=== PATIENT | female | born 2000 | race Caucasian/White ===

== ENCOUNTER 2019-11-07 22:03 | Emergency (ER) | payer BC ==
--- NOTE | 2019-11-07 23:44 | ED ---
Skin Complaint - HPI Summary HPI Summary: Patient complains of rash localized to allergy shot injection site received 2 days ago. Patient receives the same shots regularly but has never had reaction before. Rash is pruritic, nonpainful. Denies any involvement of throat, SOB, fever, cough, sore throat, CP, SOB, N/3/D, abdominal pain, change in urine, change in BM. Medical history is asthma. - History of Current Complaint Chief Complaint: EDRashSkinAbscess Time Seen by Provider: 11/07/19 23:20 Stated Complaint: RASH ON RT ARM PER PT Hx Obtained From: Patient Onset/Duration: Started Days Ago Skin Exposure Onset/Duration: Days Ago Timing: Constant Current Severity: None Pain Intensity: 0 Pain Scale Used: 0-10 Numeric Skin Location: Discrete, Arm Aggravating Symptom(s): Nothing Alleviating Symptom(s): Nothing Associated Signs & Symptoms: Negative - Allergy/Home Medications Allergies/Adverse Reactions: Allergies Allergy/AdvReac Type Severity Reaction Status Date / Time No Known Allergies Allergy Verified 11/07/19 22:05 Home Medications: Home Medications Cephalexin CAP* [Keflex CAP*] 500 mg PO QID 7 Days #28 cap 11/07/19 [Rx] PMH/Surg Hx/FS Hx/Imm Hx Endocrine/Hematology History: Denies: Hx Anticoagulant Therapy Cardiovascular History: Denies: Hx Cardiac Arrest History: Denies: Hx Dialysis Sensory History: Denies: Hx Eye Prosthesis Opthamlomology History: Denies: Hx Legally Blind EENT History: Denies: Hx Deafness Neurological History: Denies: Hx CVA Infectious Disease History: No Infectious Disease History: Denies: Traveled Outside the [place] in Last 30 Days - Family History Known Family History: Positive: Non-Contributory - Social History Alcohol Use: Occasionally Substance Use Type: Reports: None Smoking Status (MU): Never Smoked Tobacco Review of Systems Constitutional: Negative Eyes: Negative ENT: Negative Cardiovascular: Negative Respiratory: Negative Gastrointestinal: Negative Genitourinary: Negative Musculoskeletal: Negative Positive: Rash Neurological/Mental Status: Negative Psychological: Normal All Other Systems Reviewed And Are Negative: Yes Physical Exam - Summary Physical Exam Summary: Localized 5 Cm x 5cm Area of Erythema Surrounding the Injection Site. No Extra Warmth, Ecchymosis, Swelling Noted. Triage Information Reviewed: Yes Vital Signs On Initial Exam: Initial Vitals Temp Pulse Resp BP Pulse Ox 98.3 F 105 18 143/80 98 11/07/19 22:06 11/07/19 22:06 11/07/19 22:06 11/07/19 22:06 11/07/19 22:06 Vital Signs Reviewed: Yes Appearance: Positive: Well-Appearing Skin: Positive: Warm Head/Face: Positive: Normal Head/Face Inspection Eyes: Positive: Normal Neck: Positive: Supple Respiratory/Lung Sounds: Positive: Clear to Auscultation Cardiovascular: Positive: Normal Abdomen Description: Positive: Nontender Musculoskeletal: Positive: Normal Neurological: Positive: Normal Psychiatric: Positive: Normal AVPU Assessment: Alert - [place] Coma Scale Best Eye Response: 4 - Spontaneous Best Motor Response: 6 - Obeys Commands Best Verbal Response: 5 - Oriented Coma Scale Total: 15 Procedures - Sedation Patient Received Moderate/Deep Sedation with Procedure: No Diagnostics - Vital Signs Vital Signs Temp Pulse Resp BP Pulse Ox 11/07/19 22:06 98.3 F 105 18 143/80 98 - Laboratory Lab Statement: Any lab studies that have been ordered have been reviewed, and results considered in the medical decision making process. Course/Dx - Course Course Of Treatment: Patient complains of rash localized to allergy shot injection site received 2 days ago. Patient receives the same shots regularly but has never had reaction before. Rash is pruritic, nonpainful. Denies any involvement of throat, SOB, fever, cough, sore throat, CP, SOB, N/3/D, abdominal pain, change in urine, change in BM. Medical history is asthma. Vital signs within normal limits. Patient advised to try Zyrtec for couple days. Prescription for Keflex sent to pharmacy if Zyrtec does not improve symptoms. - Diagnoses Provider Diagnoses: Allergic reaction Discharge ED - Sign-Out/Discharge Documenting (check all that apply): Patient Departure - Discharge Plan Condition: Stable Disposition: HOME Prescriptions: Cephalexin CAP* [Keflex CAP*] 500 mg PO QID 7 Days #28 cap Patient Education Materials: General Allergic Reaction (ED) Referrals: No Primary Care Phys,NOPCP [Primary Care Provider] - Additional Instructions: Take Zyrtec daily for the next couple days. If symptoms do not improve start antibiotics. Follow-up with primary care. - Billing Disposition and Condition Condition: STABLE Disposition: Home
[2019-11-07 23:56] VITALS: BP 120/74
== END 2019-11-07 23:54 | disposition home or self-care (01) ==
LOC: ED 22:03
DX: T50.905A Adverse effect of unspecified drugs, medicaments and biological substances, initial encounter (principal); R21 Rash and other nonspecific skin eruption; Y92.9 Unspecified place or not applicable
CPT/HCPCS: 99281